=== PATIENT | female | born 1985 | race Caucasian/White ===

== ENCOUNTER 2023-07-30 06:32 | Emergency (ER) | payer BC, SELFPAY ==
[2023-07-30 06:35] VITALS: BP 111/67; PULSE 87; RESP 18; TEMP 36.6; O2SAT 98
--- NOTE | 2023-07-30 06:52 | ED.GENADUL_ITS ---
Discharge Plan Disposition Patient Disposition: Home Discharge Details Clinical Impression: Acute flank pain, Renal colic on right side, Nausea & vomiting Primary Care Provider: None,None ED Provider: Ivana Victor Home Meds and New Rx's Prescriptions: New ondansetron 4 mg tablet,disintegrating 4 mg PO Q6H PRN (Reason: nausea and vomiting) Qty: 30 0RF ketorolac 10 mg tablet 10 mg PO Q6H PRN (Reason: pain) 3 Days Qty: 12 0RF tamsulosin [Flomax] 0.4 mg capsule 0.4 mg PO DAILY Qty: 14 0RF Discharge Instructions Instructions: Renal Colic (ED) Additional Instructions: Please take medications as prescribed. Drink lots of water. Monitor your urine, you should noticed a stone pass. Return to the emergency department with severe pain, not tolerating anything by mouth. Medical Decision Making Emergent evaluation of flank pain. Initial differential includes renal stone, urinary tract infection, pyelonephritis, less likely acute intra-abdominal process. I observe the patient here and it does appear to be bloody. Initial plan for IV fluid resuscitation due to the vomiting, nausea and pain control. We will evaluate urinalysis, renal function and get CT imaging to evaluate stone. 0700: Patient is not . Large blood noted in urinalysis. Micro still pending. 0715: Echo consistent with blood, no evidence or concern for infection at this time. 0810: BMP reviewed, normal renal function. I reviewed the CT imaging, and independently interpreted, there is a noted right-sided renal stone with mild hydronephrosis 0823 reviewed radiology read of CT imaging, they confirm right-sided renal stone. They are measuring 3 mm. Patient has received medications and is feeling better. Given the size of the renal stone, she likely passed. Will discharge home with medical expulsion therapy. Return precautions advised. Medical Records Medical records reviewed: Yes I reviewed the patient's medical records. Lab Data Lab results reviewed: Yes I reviewed the patient's lab results. HPI General Date/Time Provider Initiated Documentation: 07/30/23 06:44 . Limitations to Documentation: no limitations . Information obtained by: patient . HPI Narrative: 38-year-old female without significant past medical history presents for evaluation of cute onset right flank pain. Onset of symptoms about 3 hours ago. Symptoms have been severe, intermittent. Reports some relief now without any intervention. Symptoms associated with bloody urine. Also having nausea and vomiting. Pain localized to the right lower back. She reports that this feels like back labor. She has been noticing some dark-colored urine for the last 3 days. Denies any dysuria, frequency or urgency. Reports having history of kidney stones during . Related Data Home Medications Medication Instructions Recorded Confirmed ketorolac 10 mg tablet 10 mg PO Q6H PRN pain 3 days #12 07/30/23 tabs ondansetron 4 mg disintegrating 4 mg PO Q6H PRN nausea and 07/30/23 tablet vomiting #30 tabs tamsulosin 0.4 mg capsule (Flomax) 0.4 mg PO DAILY #14 caps 07/30/23 Previous Rx's Medication Instructions Recorded ketorolac 10 mg tablet 10 mg PO Q6H PRN pain 3 days #12 07/30/23 tabs ondansetron 4 mg disintegrating 4 mg PO Q6H PRN nausea and 07/30/23 tablet vomiting #30 tabs tamsulosin 0.4 mg capsule (Flomax) 0.4 mg PO DAILY #14 caps 07/30/23 Allergies Allergy/AdvReac Type Severity Reaction Status Date / Time No Known Allergies Allergy Verified 07/30/23 07:04 General Stated Complaint: Urinary PEYMAN: 3 PFSH All Active Problems (Updated 07/30/23 @ 08:31 by Ivana Victor MD) Nausea & vomiting (Acute) Renal colic on right side (Acute) Acute flank pain (Acute) Social History Smoking/Tobacco Use Status: Never Smoking risk assessment performed?: Yes Substance use type: marijuana Do you feel safe at home: Yes Do you feel safe in your relationship?: Yes Exam Narrative Exam Narrative: Review of Systems: All systems reviewed & are unremarkable except as noted in HPI and below Exam: Const: Well-nourished, Well-developed, mild distress HEENT: NACT / Eyes: PERRL, no conjunctival injection, and symmetrical lids / EARS Atraumatic external nose and ears / MOUTH Moist MM / NECK: Symmetric, trachea midline, No thyromegaly / THROAT oropharynx clear CVS: RRR, No murmurs or gallops. Peripheral pulses 2+ and equal in all extremities. Brisk capillary refill in all extremities. RESP: Unlabored respiratory effort, Clear to auscultation bilaterally. No wheezes rales or rhonchi GI: Soft, Nontender/Nondistended, No hepatosplenomegaly. No guarding or rebound. No CVAT MSK: Extremities w/o deformity or TTP, No cyanosis or clubbing, full range of motion Skin: Warm, Dry. No rashes or lesions. 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 Sensation grossly intact, no focal neurologic deficits. Psych: (AAO) x3. Appropriate mood and affect Course Vital Signs Vital signs: Vital Signs Temperature 36.6 C 07/30/23 06:35 Pulse 87 07/30/23 06:35 Respiratory Rate 18 07/30/23 06:35 Blood Pressure 111/67 07/30/23 06:35 Pulse Oximetry 98 07/30/23 06:35 Temperature 36.6 C 07/30/23 06:35 Temperature Source Oral 07/30/23 06:35 Pulse 87 07/30/23 06:35 Respiratory Rate 18 07/30/23 06:35 Respiratory Effort Normal 07/30/23 06:43 Blood Pressure 111/67 07/30/23 06:35 Blood Pressure Position Sitting 07/30/23 06:35 Pulse Oximetry 98 07/30/23 06:35 Oxygen Delivery Method Room Air 07/30/23 06:35 Oxygen Flow Rate 0 07/30/23 06:35 Pain Level 7 07/30/23 06:44
[2023-07-30 07:03] LABS: Bilirubin Small (Negative); Blood Large (Negative); Clarity Cloudy (Clear); Glucose Negative (Negative); Ketones Trace mg/dL (Negative); Leukocyte Esterase Trace (Negative); Nitrite Negative (Negative); Specific Gravity 1.025 (1.005-1.025); Urobilinogen 0.2 mg/dL (Up to 0.2)
[2023-07-30 07:10] LABS: Bacteria Few HPF (Negative); C & S Indicated? No/Sq. Contamination; Casts Negative LPF (Negative); Crystals Negative HPF (Negative); Epithelial Cells Moderate HPF (Negative); Mucus Moderate (Negative); RBC 20-50 HPF (0-2)
--- NOTE | 2023-07-30 07:26 | DI.CT_ITS ---
Exam(s) CT RENAL COLIC WO EXAM: CT RENAL COLIC WO CLINICAL HISTORY: right flank pain. TECHNIQUE: Imaging Protocol: Axial computed tomography images with coronal and sagittal reformatted images were created and reviewed. CONTRAST MATERIAL: Noncontrast COMPARISON: No exams were available for comparison FINDINGS: ABDOMEN: Lung Bases: Normal where visualized. Liver: Normal attenuation. No measurable mass. Gallbladder and biliary tract: No radiodense calculus or dilation. Pancreas: Normal density, no calcifications or inflammatory process. Spleen: Normal. Kidneys: Normal size, contour and axis. Mild right hydronephrosis secondary to a to 2 millimeter ston e just below the ureteropelvic junction. Additional tiny punctate right renal calculi seen. 6 omid meter stone lower pole left kidney. No left hydronephrosis. Few other tiny punctate calculi seen. No masses seen. Adrenal glands: No masses seen. Abdominal Aorta: Abdominal portion non-dilated. Soft tissues: Unremarkable. PELVIS: Bladder: Symmetric distention, no gross wall thickening. No evidence of stones.No visible mass. Bowel: No obstruction or bowel wall thickening. Reproductive: Unremarkable. Peritoneal cavity: No ascites, collection or mesenteric inflammatory response. Bones: Unremarkable for age.. IMPRESSION: Mild right hydronephrosis secondary to 2 millimeter calculus just below the ureterovesical junction. 6 millimeter calculus lower pole left kidney. RADIATION DOSE DELIVERED: Total DLP DATA REPOSITORY: All CT scans at this facility are submitted to the National Radiology Data Registry (NRDR) Dose Index Registry (DIR) with the [employer] ([employer]). RADIATION OPTIMIZATION: All CT scans at this facility use at least one of these dose optimization te chniques: automated exposure control; mA and/or kV adjustment per patient size (includes targeted exa ms where dose is matched to clinical indication); or iterative reconstruction.
[2023-07-30] MEDS: Normal Saline 1,000 ML 1000 ML IV (07:47)
[2023-07-30] MEDS: Ondansetron 4 MG/2 ML VIAL IVP (07:51)
[2023-07-30] MEDS: Ketorolac 15 MG/ML VIAL 10 MG IVP (07:54)
[2023-07-30 07:56] LABS: Anion Gap 9.4 mmol/L (3-11); BUN 16 mg/dL (7-18); CO2 26.6 mmol/L (21.0-32.0); CREATININE 0.8 mg/dL (0.55-1.02); Calcium 9.5 mg/dL (8.5-10.1); Chloride 104 mmol/L (98-107); Estimated GFR 97.87 (mL/min/1.73m2); Glucose 108 mg/dL (74-106); Potassium 3.6 mmol/L (3.5-5.1); Sodium 140 mmol/L (136-145)
--- NOTE | 2023-07-30 08:19 | DI.VRAD_ITS ---
PROCEDURE INFORMATION: Exam: CT Abdomen And Pelvis Without Contrast Exam date and time: 07/30/2023 7:25 AM Age: 38 years old Clinical indication: Other: RT flank pain TECHNIQUE: Imaging protocol: Computed tomography of the abdomen and pelvis without contrast. Radiation optimization: All CT scans at this facility use at least one of these dose optimization techniques: automated exposure control; mA and/or kV adjustment per patient size (includes targeted exams where dose is matched to clinical indication); or iterative reconstruction. COMPARISON: No relevant prior studies available. FINDINGS: Lungs: Visualized lung bases are clear. No pleural effusions. Liver: Unremarkable. Gallbladder and bile ducts: Unremarkable. No calcified gallstones. No intrahepatic or extrahepatic biliary ductal dilation. Pancreas: Unremarkable. Spleen: Unremarkable. The spleen is normal in size. Adrenal glands: Unremarkable. Kidneys and ureters: There is mild right hydroureteronephrosis secondary to an obstructing 3 mm calculus in the proximal right ureter, just distal to the ureteropelvic junction (series 3, image 353). A faint punctate calculus is seen in the mid right kidney (sagittal image 81). The left renal collecting system and left ureter are normal in caliber. There are nonobstructing calculi in the lower pole of the left kidney which measure 1 mm and 6 mm. Stomach and bowel: Unremarkable. The stomach is nondilated. The small and large bowel are normal in caliber. Appendix: A nondilated appendix is identified. Intraperitoneal space: Unremarkable. No ascites, fluid collection, or pneumoperitoneum. Retroperitoneal space: Unremarkable. No retroperitoneal collection or mass. Vasculature: Unremarkable. The abdominal aorta is normal in caliber. Lymph nodes: No pathologically enlarged lymph nodes. Urinary bladder: Unremarkable. No intraluminal calcifications. Reproductive: Unremarkable as visualized. Bones/joints: No suspicious osseous lesions. Soft tissues: Unremarkable. IMPRESSION: Mild right hydroureteronephrosis secondary to an obstructing 3 mm calculus in the proximal right ureter. Dictated and Authenticated by: Kristen Bonilla MD. Ordering:[facility] Kayleigh Petty MD
[2023-07-30 08:25] VITALS: BP 92/50; PULSE 53; RESP 18; TEMP 36.6; O2SAT 98
[2023-07-30 08:59] VITALS: BP 98/52; PULSE 65
== END 2023-07-30 09:09 | disposition home or self-care (01) ==
PROVIDERS: Emergency Provider Emergency Medicine
DX: R10.9 Unspecified abdominal pain; R11.2 Nausea with vomiting, unspecified; N13.2 Hydronephrosis with renal and ureteral calculous obstruction
CPT/HCPCS: 36415; 80048; 81025; 99285; 74176; 81003; 81015; 99284; J1885; J2405